=== PATIENT | female | born 1945 | race Two or more races ===

== ENCOUNTER 2016-11-05 19:35 | Inpatient (IN) | payer MEDICARE, MEDICAID ==
[~2016-11-05] VITALS: Ht 157.5 cm; Wt 75.7 kg
[~2016-11-05 19:35] MED LIST: AMLODIPINE BESY10 MG ORAL; CARVEDILOL6.25 MG ORAL; GLIPIZIDE5 MG ORAL; METFORMIN HCL500 M1 ORAL; MULTIPLE VITAM1 EAC5 PO; VITAMIN B-121000 MCG IM
[2016-11-05] MEDS ORDERED: Ertapenem 1 GM in NS 55 ML IV ONE (20:00)
[2016-11-05] MEDS ORDERED: Norco 5mg/325mg tab ORAL ONE (20:30)
[2016-11-05] MEDS ORDERED: Ertapenem (INVanz) Inj ONE (20:35)
[2016-11-05 21:00] VITALS: BP 134/64
[2016-11-05 21:06] LABS: MEAN CORPUSCULAR HEMOGLOBIN 31.4 PG (27.0-31.0); MEAN CORPUSCULAR HGB CONC 36.4 G/DL (32.0-36.0); MEAN CORPUSCULAR VOLUME 86 FL (80-99); MEAN PLATELET VOLUME 8.9 FL (6.5-10.1); PLATELET COUNT 80 K/UL (150-450); RED BLOOD COUNT 4.64 M/UL (4.20-5.40); RED CELL DISTRIBUTION WIDTH 11.9 % (11.6-14.8); WHITE BLOOD COUNT 6.8 K/UL (4.8-10.8)
[2016-11-05 21:12] LABS: APPEARANCE,URINE CLEAR; KETONES,URINE NEGATIVE (NEGATIVE); LEUKOCYTE ESTERASE ,URINE 3+ (NEGATIVE); NITRITE,URINE NEGATIVE (NEGATIVE); PH,URINE 7 (4.5-8.0); PROTEIN,URINE NEGATIVE (NEGATIVE); UROBILINOGEN,URINE NORMAL MG/DL (0.0-1.0)
[2016-11-05 21:13] LABS: PROTHROMBIN TIME 10.3 SEC (9.30-11.50)
[2016-11-05 21:14] LABS: TROPONIN I < 0.30 ng/mL (<=0.30)
[2016-11-05 21:15] LABS: ALANINE AMINOTRANSFERASE 28 U/L (3-33); ALBUMIN/GLOBULIN RATIO 1.5 (1.0-2.7); ANION GAP 15 (5-15); ASPARTATE AMINO TRANSFERASE 28 U/L (5-40); CARBON DIOXIDE 25 mEQ/L (20-30); CHLORIDE 100 mEQ/L (98-107); HEMOLYSIS 7; SODIUM 140 mEQ/L (135-145); TOTAL PROTEIN 7.5 g/dL (6.6-8.7)
[2016-11-05 21:39] LABS: BACTERIA,URINE MANY /HPF; SQUAMOUS EPITHELIAL CELL,UR FEW /LPF (NONE/OCC)
[2016-11-05 22:03] LABS: BAND NEUTROPHILS % (MANUAL) 2 % (0-8); BASOPHILS % (MANUAL) 1 % (0-2); EOSINOPHILS % (MANUAL) 8 % (0-3); LYMPHOCYTES % (MANUAL) 29 % (20-45); NEUTROPHILS % (MANUAL) 54 % (45-75); TOTAL CELLS COUNTED 100
[2016-11-05 22:04] LABS: PLATELET ESTIMATE DECREASED; PLATELET MORPHOLOGY NORMAL
[2016-11-05 22:30] VITALS: BP 134/64
--- NOTE | 2016-11-05 22:50 | Emergency Room Report ---
History of Present Illness General Chief Complaint: Female Urogenital Problems Source: Patient Present Illness HPI The patient was sent in because of resistant Escherichia coli in the urine. She 's been taking an antibiotic 3 times a day. It's not been helping her symptoms. She denies any fevers. She still has dysuria and suprapubic pain. Denies nausea and vomiting. No fevers or flank pain. The organism it is is resistant to everything except for imipenem and gentamicin. She was sent here by her doctor. The patient has a pacemaker. A year ago she underwent event monitor and was started on antiarrhythmic medication. This was stopped because of hypotension and lethargy and nothing else was replaced. She is on Coreg at this time. She does feel palpitations and some dizziness with these. She denies any chest pain. No dyspnea, rashes, extremity pain or swelling, headache. No bleeding problems. H/O Hep C and cirrhosis. H/O gastric ulcer treated, no further bleeding or pain. No NVD. Allergies: Coded Allergies: No Known Allergies (Unverified , 10/22/15) Patient History Past Medical History: see triage record Past Surgical History: pacemaker Social History: Denies: smoking Social History Narrative with family Reviewed Nursing Documentation: PMH: Agreed, PSxH: Agreed Nursing Documentation-PMH Hx Cardiac Problems: Yes Hx Hypertension: Yes Hx Pacemaker: No Hx Asthma: No Hx COPD: No Hx Diabetes: Yes Hx Cancer: No Hx Gastrointestinal Problems: No Hx Dialysis: No History Of Psychiatric Problem: No Hx Neurological Problems: No Hx Cerebrovascular Accident: No Hx Seizures: No Review of Systems All Other Systems: negative except mentioned in HPI Physical Exam Vital Signs Date Time Temp Pulse Resp B/P Pulse Ox O2 Delivery O2 Flow Rate FiO2 11/05/16 19:49 97.9 78 16 149/76 98 Room Air Sp02 EP Interpretation: reviewed, normal General Appearance: well appearing, no apparent distress, GCS 15 Head: normocephalic Eyes: bilateral eye PERRL, bilateral eye normal inspection ENT: moist mucus membranes Neck: supple Respiratory: lungs clear, normal breath sounds, other - pacemaker Cardiovascular #1: regular rate, rhythm Cardiovascular #2: 2+ radial (R) Gastrointestinal: normal inspection, normal bowel sounds, non tender, no mass, non-distended Genitourinary: no CVA tenderness Musculoskeletal: back normal, gait/station normal, normal range of motion Neurologic: alert, oriented x3, grossly normal Psychiatric: mood/affect normal Skin: normal inspection, warm/dry Medical Decision Making Diagnostic Impression: Primary Impression: UTI with resistant e coli Additional Impression: Tachyarrhythmia ER Course Patient symptomatic with resistant e coli. Needs evaluation with labs and initiation of IV antibiotics. Will also treat symptoms. As only IV antibiotics effective, will admit to hospital. Needs lab eval. Labs with pyuria. EKG with NSR and BBB. Treated with Invanz as no Imipenem. Patient had an episode of either rapid atrial fibrillation or ventricular tachycardia. She was symptomatic at that time. She felt palpitations but no chest pain. Because of this the patient is going to monitor bed. This was discussed with Dr. Lockhart. Improved with treatment. Laboratory Tests Test 11/05/16 20:25 White Blood Count 6.8 K/UL (4.8-10.8) Red Blood Count 4.64 M/UL (4.20-5.40) Hemoglobin 14.6 G/DL (12.0-16.0) Hematocrit 40.0 % (37.0-47.0) Mean Corpuscular Volume 86 FL (80-99) Mean Corpuscular Hemoglobin 31.4 PG (27.0-31.0) H Mean Corpuscular Hemoglobin Concent 36.4 G/DL (32.0-36.0) H Red Cell Distribution Width 11.9 % (11.6-14.8) Platelet Count 80 K/UL (150-450) L Mean Platelet Volume 8.9 FL (6.5-10.1) Neutrophils (%) (Auto) % (45.0-75.0) Lymphocytes (%) (Auto) % (20.0-45.0) Monocytes (%) (Auto) % (1.0-10.0) Eosinophils (%) (Auto) % (0.0-3.0) Basophils (%) (Auto) % (0.0-2.0) Differential Total Cells Counted 100 Neutrophils % (Manual) 54 % (45-75) Lymphocytes % (Manual) 29 % (20-45) Monocytes % (Manual) 6 % (1-10) Eosinophils % (Manual) 8 % (0-3) H Basophils % (Manual) 1 % (0-2) Band Neutrophils 2 % (0-8) Platelet Estimate Decreased L Platelet Morphology Normal Red Blood Cell Morphology Normal Prothrombin Time 10.3 SEC (9.30-11.50) Prothrombin Time INR 1.0 (0.9-1.1) PTT 28 SEC (23-33) Urine Color Yellow Urine Appearance Clear Urine pH 7 (4.5-8.0) Urine Specific [place] 1.005 (1.005-1.035) Urine Protein Negative (NEGATIVE) Urine Glucose (UA) Negative (NEGATIVE) Urine Ketones Negative (NEGATIVE) Urine Occult Blood Negative (NEGATIVE) Urine Nitrite Negative (NEGATIVE) Urine Bilirubin Negative (NEGATIVE) Urine Urobilinogen Normal MG/DL (0.0-1.0) Urine Leukocyte Esterase 3+ (NEGATIVE) H Urine RBC 2-4 /HPF (0 - 2) H Urine WBC 5-10 /HPF (0 - 2) H Urine Squamous Epithelial Cells Few /LPF (NONE/OCC) Urine Bacteria Many /HPF (NONE) H Sodium Level 140 mEQ/L (135-145) Potassium Level 4.0 mEQ/L (3.4-4.9) Chloride Level 100 mEQ/L (98-107) Carbon Dioxide Level 25 mEQ/L (20-30) Anion Gap 15 (5-15) Blood Urea Nitrogen 16 mg/dL (7-23) Creatinine 1.0 mg/dL (0.5-0.9) H Estimate Glomerular Filtration Rate mL/min (>60) Glucose Level 140 mg/dL (74-106) H Lactic Acid Level 1.40 mmol/L (0.66-2.22) Calcium Level 10.0 mg/dL (8.6-10.2) Total Bilirubin 0.4 mg/dL (0.0-1.2) Aspartate Amino Transferase (AST) 28 U/L (5-40) Alanine Aminotransferase (ALT) 28 U/L (3-33) Alkaline Phosphatase 59 U/L (35-104) Total Creatine Kinase 53 U/L (26-140) Troponin I < 0.30 ng/mL (<=0.30) Pro-B-Type Natriuretic Peptide 585 pg/mL (0-125) H Total Protein 7.5 g/dL (6.6-8.7) Albumin 4.5 g/dL (3.5-5.2) Globulin 3.0 g/dL Albumin/Globulin Ratio 1.5 (1.0-2.7) EKG Diagnostic Results Rate: normal Rhythm: NSR ST Segments: no acute changes - LBBB Rhythm Strip Diag. Results EP Interpretation: yes Rhythm: NSR, no PVC's, no ectopy, other - see course Chest X-Ray Diagnostic Results EP Interpretation: Yes Findings: no consolidation, no effusion, no pneumothorax, no acute cardiopulmonary disease Number of Views: 1 Last Vital Signs Date Time Temp Pulse Resp B/P Pulse Ox O2 Delivery O2 Flow Rate FiO2 11/07/16 00:24 97.8 61 18 136/76 96 Nasal Cannula 2.0 Status: improved Disposition: ADMITTED INPATIENT Condition: Serious Referrals: NON PHYSICIAN (PCP) Miguel Rodriguez M.D. November 05, 2016 22:50
[2016-11-05 23:32] VITALS: BP 145/68
[2016-11-06] VITALS: BP 148/81
[2016-11-06] MEDS ORDERED: FENOFIBRATE43 MG ORAL (00:44)
[2016-11-06] MEDS ORDERED: LOSARTAN POTAS100 MG ORAL (00:44)
[2016-11-06] MEDS ORDERED: Norco 5mg/325mg tab ORAL PRN (00:45)
[2016-11-06 04:07] VITALS: BP 141/76
[2016-11-06 07:20] LABS: MEAN CORPUSCULAR HEMOGLOBIN 29.3 PG (27.0-31.0); MEAN CORPUSCULAR VOLUME 86 FL (80-99); MEAN PLATELET VOLUME 10.9 FL (6.5-10.1); PLATELET COUNT 93 K/UL (150-450); RED BLOOD COUNT 4.61 M/UL (4.20-5.40); RED CELL DISTRIBUTION WIDTH 12.1 % (11.6-14.8); WHITE BLOOD COUNT 6.3 K/UL (4.8-10.8)
[2016-11-06 07:37] LABS: ALANINE AMINOTRANSFERASE 24 U/L (3-33); ALBUMIN/GLOBULIN RATIO 1.4 (1.0-2.7); ANION GAP 16 (5-15); ASPARTATE AMINO TRANSFERASE 24 U/L (5-40); CALCIUM 9.3 mg/dL (8.6-10.2); CARBON DIOXIDE 24 mEQ/L (20-30); CHLORIDE 101 mEQ/L (98-107); CREATININE 0.8 mg/dL (0.5-0.9); HEMOLYSIS 5; POTASSIUM 3.6 mEQ/L (3.4-4.9); SODIUM 141 mEQ/L (135-145); TOTAL PROTEIN 6.9 g/dL (6.6-8.7)
[2016-11-06 08:01] VITALS: BP 140/71
--- NOTE | 2016-11-06 08:37 | Infectious Diseases Prog Note ---
Assessment/Plan Problems: (1) Urinary tract infection Assessment & Plan: due to E coli sensitive to imipenem and gentamicin only, will start ertapenem (2) Dehydration Assessment & Plan: continue IVF for hydration Subjective Allergies: Coded Allergies: No Known Allergies (Unverified , 10/22/15) Objective Vital Signs Last 24 Hour Vital Signs Date Time Temp Pulse Resp B/P Pulse Ox O2 Delivery O2 Flow Rate FiO2 11/06/16 08:01 97.5 65 18 140/71 95 Room Air 11/06/16 04:07 97.7 67 20 141/76 95 Room Air 11/06/16 04:00 68 11/06/16 00:00 97.2 67 18 148/81 95 Room Air 11/05/16 23:40 97.9 68 16 145/68 99 Room Air 11/05/16 23:32 97.9 68 16 145/68 99 Room Air 11/05/16 21:00 97.9 67 16 134/64 99 Room Air 11/05/16 19:49 97.9 78 16 149/76 98 Room Air Height (Feet): 5 Height (Inches): 2.00 Weight (Pounds): 167 Laboratory Tests Test 11/05/16 20:25 11/06/16 05:45 White Blood Count 6.8 K/UL (4.8-10.8) 6.3 K/UL (4.8-10.8) Red Blood Count 4.64 M/UL (4.20-5.40) 4.61 M/UL (4.20-5.40) Hemoglobin 14.6 G/DL (12.0-16.0) 13.5 G/DL (12.0-16.0) Hematocrit 40.0 % (37.0-47.0) 39.6 % (37.0-47.0) Mean Corpuscular Volume 86 FL (80-99) 86 FL (80-99) Mean Corpuscular Hemoglobin 31.4 PG (27.0-31.0) H 29.3 PG (27.0-31.0) Mean Corpuscular Hemoglobin Concent 36.4 G/DL (32.0-36.0) H 34.0 G/DL (32.0-36.0) Red Cell Distribution Width 11.9 % (11.6-14.8) 12.1 % (11.6-14.8) Platelet Count 80 K/UL (150-450) L 93 K/UL (150-450) L Mean Platelet Volume 8.9 FL (6.5-10.1) 10.9 FL (6.5-10.1) H Neutrophils (%) (Auto) % (45.0-75.0) % (45.0-75.0) Lymphocytes (%) (Auto) % (20.0-45.0) % (20.0-45.0) Monocytes (%) (Auto) % (1.0-10.0) % (1.0-10.0) Eosinophils (%) (Auto) % (0.0-3.0) % (0.0-3.0) Basophils (%) (Auto) % (0.0-2.0) % (0.0-2.0) Differential Total Cells Counted 100 Neutrophils % (Manual) 54 % (45-75) Pending Lymphocytes % (Manual) 29 % (20-45) Pending Monocytes % (Manual) 6 % (1-10) Eosinophils % (Manual) 8 % (0-3) H Basophils % (Manual) 1 % (0-2) Band Neutrophils 2 % (0-8) Platelet Estimate Decreased L Pending Platelet Morphology Normal Pending Red Blood Cell Morphology Normal Prothrombin Time 10.3 SEC (9.30-11.50) Prothromb Time International Ratio 1.0 (0.9-1.1) Activated Partial Thromboplast Time 28 SEC (23-33) Urine Color Yellow Urine Appearance Clear Urine pH 7 (4.5-8.0) Urine Specific [place] 1.005 (1.005-1.035) Urine Protein Negative (NEGATIVE) Urine Glucose (UA) Negative (NEGATIVE) Urine Ketones Negative (NEGATIVE) Urine Occult Blood Negative (NEGATIVE) Urine Nitrite Negative (NEGATIVE) Urine Bilirubin Negative (NEGATIVE) Urine Urobilinogen Normal MG/DL (0.0-1.0) Urine Leukocyte Esterase 3+ (NEGATIVE) H Urine RBC 2-4 /HPF (0 - 2) H Urine WBC 5-10 /HPF (0 - 2) H Urine Squamous Epithelial Cells Few /LPF (NONE/OCC) Urine Bacteria Many /HPF (NONE) H Sodium Level 140 mEQ/L (135-145) 141 mEQ/L (135-145) Potassium Level 4.0 mEQ/L (3.4-4.9) 3.6 mEQ/L (3.4-4.9) Chloride Level 100 mEQ/L (98-107) 101 mEQ/L (98-107) Carbon Dioxide Level 25 mEQ/L (20-30) 24 mEQ/L (20-30) Anion Gap 15 (5-15) 16 (5-15) H Blood Urea Nitrogen 16 mg/dL (7-23) 14 mg/dL (7-23) Creatinine 1.0 mg/dL (0.5-0.9) H 0.8 mg/dL (0.5-0.9) Estimat Glomerular Filtration Rate mL/min (>60) mL/min (>60) Glucose Level 140 mg/dL (74-106) H 152 mg/dL (74-106) H Lactic Acid Level 1.40 mmol/L (0.66-2.22) Calcium Level 10.0 mg/dL (8.6-10.2) 9.3 mg/dL (8.6-10.2) Total Bilirubin 0.4 mg/dL (0.0-1.2) 0.4 mg/dL (0.0-1.2) Aspartate Amino Transf (AST/SGOT) 28 U/L (5-40) 24 U/L (5-40) Alanine Aminotransferase (ALT/SGPT) 28 U/L (3-33) 24 U/L (3-33) Alkaline Phosphatase 59 U/L (35-104) 52 U/L (35-104) Total Creatine Kinase 53 U/L (26-140) Troponin I < 0.30 ng/mL (<=0.30) Pro-B-Type Natriuretic Peptide 585 pg/mL (0-125) H Total Protein 7.5 g/dL (6.6-8.7) 6.9 g/dL (6.6-8.7) Albumin 4.5 g/dL (3.5-5.2) 4.1 g/dL (3.5-5.2) Globulin 3.0 g/dL 2.8 g/dL Albumin/Globulin Ratio 1.5 (1.0-2.7) 1.4 (1.0-2.7) Current Medications Medications (Trade) Dose Ordered Sig/Leonarda Route PRN Reason Start Time Stop Time Status Last Admin Dose Admin Acetaminophen (Tylenol) 650 mg Q4H PRN ORAL Mild Pain/Temp > 100.5 11/06/16 00:45 12/06/16 00:44 11/06/16 05:56 Acetaminophen/ Hydrocodone Bitart ([place] 5/325) 1 tab Q4H PRN ORAL Moderate Pain (Pain Scale 4-6) 11/06/16 00:45 11/13/16 00:44 Amlodipine Besylate (Norvasc) 10 mg DAILY ORAL 11/06/16 09:00 12/06/16 08:59 Carvedilol (Coreg) 6.25 mg BID ORAL 11/06/16 09:00 12/06/16 08:59 Fenofibrate (Tricor) 54 mg DAILY ORAL 11/06/16 09:00 12/06/16 08:59 Losartan Potassium (Cozaar) 50 mg BID ORAL 11/06/16 09:00 12/06/16 08:59 Metformin HCl (Glucophage) 500 mg TWICE A DAY ORAL 11/06/16 09:00 12/06/16 08:59 Multivitamins Therapeutic (Therapeutic Multivitamin) 1 ea DAILY ORAL 11/06/16 09:00 12/06/16 08:59 Yady Godoy M.D. November 06, 2016 08:37
[2016-11-06] MEDS: metFORMIN 500mg tab ORAL SCH ×2 (08:49→17:07)
[2016-11-06] MEDS: Multivitamin w/Minerals tab ORAL SCH (08:49)
[2016-11-06] MEDS: Losartan 50mg tab ORAL SCH ×2 (08:49→17:08)
[2016-11-06] MEDS ORDERED: Carvedilol 6.25mg Tab ORAL SCH (09:00)
[2016-11-06 09:51] LABS: BAND NEUTROPHILS % (MANUAL) 0 % (0-8); BASOPHILS % (MANUAL) 0 % (0-2); EOSINOPHILS % (MANUAL) 9 % (0-3); LYMPHOCYTES % (MANUAL) 46 % (20-45); NEUTROPHILS % (MANUAL) 35 % (45-75); PLATELET ESTIMATE DECREASED; PLATELET MORPHOLOGY NORMAL; TOTAL CELLS COUNTED 100
[2016-11-06 11:44] VITALS: BP 114/68
--- NOTE | 2016-11-06 12:47 | Diagnostic Imaging Report ---
Indication: Chest pain Technique: One view of the chest Comparison: none Findings: Heart is enlarged. Aorta is tortuous and calcified. There is a left chest bifocal pacemaker. There is mild generalized chronic appearing interstitial prominence Impression: No definite acute process Cardiomegaly
[2016-11-06 15:48] VITALS: BP 133/71
--- NOTE | 2016-11-06 15:54 | Cardiac Electrophysiology PN ---
Subjective Subjective [id number] Recurrent VT Will interrogate pacer for further eval. Likely would need cardiac cath for EF 35% and VT Objective Last 24 Hour Vital Signs Date Time Temp Pulse Resp B/P Pulse Ox O2 Delivery O2 Flow Rate FiO2 11/06/16 12:00 85 11/06/16 11:44 97.0 111 18 114/68 98 Room Air 11/06/16 08:54 65 140/71 11/06/16 08:49 140/71 11/06/16 08:49 65 140/71 11/06/16 08:01 97.5 65 18 140/71 95 Room Air 11/06/16 08:00 69 11/06/16 04:07 97.7 67 20 141/76 95 Room Air 11/06/16 04:00 68 11/06/16 00:00 97.2 67 18 148/81 95 Room Air 11/05/16 23:40 97.9 68 16 145/68 99 Room Air 11/05/16 23:32 97.9 68 16 145/68 99 Room Air 11/05/16 21:00 97.9 67 16 134/64 99 Room Air 11/05/16 19:49 97.9 78 16 149/76 98 Room Air Intake and Output 11/05/16 11/06/16 19:00 07:00 Intake Total 240 ml Balance 240 ml Intake Oral 240 ml # Voids 4 # Bowel Movements 2 Laboratory Tests Test 11/05/16 20:25 11/06/16 05:45 White Blood Count 6.8 K/UL (4.8-10.8) 6.3 K/UL (4.8-10.8) Red Blood Count 4.64 M/UL (4.20-5.40) 4.61 M/UL (4.20-5.40) Hemoglobin 14.6 G/DL (12.0-16.0) 13.5 G/DL (12.0-16.0) Hematocrit 40.0 % (37.0-47.0) 39.6 % (37.0-47.0) Mean Corpuscular Volume 86 FL (80-99) 86 FL (80-99) Mean Corpuscular Hemoglobin 31.4 PG (27.0-31.0) H 29.3 PG (27.0-31.0) Mean Corpuscular Hemoglobin Concent 36.4 G/DL (32.0-36.0) H 34.0 G/DL (32.0-36.0) Red Cell Distribution Width 11.9 % (11.6-14.8) 12.1 % (11.6-14.8) Platelet Count 80 K/UL (150-450) L 93 K/UL (150-450) L Mean Platelet Volume 8.9 FL (6.5-10.1) 10.9 FL (6.5-10.1) H Neutrophils (%) (Auto) % (45.0-75.0) % (45.0-75.0) Lymphocytes (%) (Auto) % (20.0-45.0) % (20.0-45.0) Monocytes (%) (Auto) % (1.0-10.0) % (1.0-10.0) Eosinophils (%) (Auto) % (0.0-3.0) % (0.0-3.0) Basophils (%) (Auto) % (0.0-2.0) % (0.0-2.0) Differential Total Cells Counted 100 100 Neutrophils % (Manual) 54 % (45-75) 35 % (45-75) L Lymphocytes % (Manual) 29 % (20-45) 46 % (20-45) H Monocytes % (Manual) 6 % (1-10) 10 % (1-10) Eosinophils % (Manual) 8 % (0-3) H 9 % (0-3) H Basophils % (Manual) 1 % (0-2) 0 % (0-2) Band Neutrophils 2 % (0-8) 0 % (0-8) Platelet Estimate Decreased L Decreased L Platelet Morphology Normal Normal Red Blood Cell Morphology Normal Normal Prothrombin Time 10.3 SEC (9.30-11.50) Prothromb Time International Ratio 1.0 (0.9-1.1) Activated Partial Thromboplast Time 28 SEC (23-33) Urine Color Yellow Urine Appearance Clear Urine pH 7 (4.5-8.0) Urine Specific [place] 1.005 (1.005-1.035) Urine Protein Negative (NEGATIVE) Urine Glucose (UA) Negative (NEGATIVE) Urine Ketones Negative (NEGATIVE) Urine Occult Blood Negative (NEGATIVE) Urine Nitrite Negative (NEGATIVE) Urine Bilirubin Negative (NEGATIVE) Urine Urobilinogen Normal MG/DL (0.0-1.0) Urine Leukocyte Esterase 3+ (NEGATIVE) H Urine RBC 2-4 /HPF (0 - 2) H Urine WBC 5-10 /HPF (0 - 2) H Urine Squamous Epithelial Cells Few /LPF (NONE/OCC) Urine Bacteria Many /HPF (NONE) H Sodium Level 140 mEQ/L (135-145) 141 mEQ/L (135-145) Potassium Level 4.0 mEQ/L (3.4-4.9) 3.6 mEQ/L (3.4-4.9) Chloride Level 100 mEQ/L (98-107) 101 mEQ/L (98-107) Carbon Dioxide Level 25 mEQ/L (20-30) 24 mEQ/L (20-30) Anion Gap 15 (5-15) 16 (5-15) H Blood Urea Nitrogen 16 mg/dL (7-23) 14 mg/dL (7-23) Creatinine 1.0 mg/dL (0.5-0.9) H 0.8 mg/dL (0.5-0.9) Estimat Glomerular Filtration Rate mL/min (>60) mL/min (>60) Glucose Level 140 mg/dL (74-106) H 152 mg/dL (74-106) H Lactic Acid Level 1.40 mmol/L (0.66-2.22) Calcium Level 10.0 mg/dL (8.6-10.2) 9.3 mg/dL (8.6-10.2) Total Bilirubin 0.4 mg/dL (0.0-1.2) 0.4 mg/dL (0.0-1.2) Aspartate Amino Transf (AST/SGOT) 28 U/L (5-40) 24 U/L (5-40) Alanine Aminotransferase (ALT/SGPT) 28 U/L (3-33) 24 U/L (3-33) Alkaline Phosphatase 59 U/L (35-104) 52 U/L (35-104) Total Creatine Kinase 53 U/L (26-140) Troponin I < 0.30 ng/mL (<=0.30) Pro-B-Type Natriuretic Peptide 585 pg/mL (0-125) H Total Protein 7.5 g/dL (6.6-8.7) 6.9 g/dL (6.6-8.7) Albumin 4.5 g/dL (3.5-5.2) 4.1 g/dL (3.5-5.2) Globulin 3.0 g/dL 2.8 g/dL Albumin/Globulin Ratio 1.5 (1.0-2.7) 1.4 (1.0-2.7) Microbiology Date/Time Source Procedure Growth Status 11/05/16 20:25 Urine,Clean Catch Urine Culture - Preliminary Resulted AURELIA BOYLE November 06, 2016 15:54
[2016-11-06] MEDS: Carvedilol 6.25mg Tab ORAL SCH (17:07)
--- NOTE | 2016-11-06 18:29 | Diagnostic Imaging Report ---
APPROVED REPORT CPT Code: 75416 Present Symptoms Comments: Pain BILATERAL: Imaging reveals a patent deep venous system bilaterally. There is no evidence of thrombus within the femoral, popliteal or tibial segments. The greater saphenous veins are also within normal limits. Doppler indicates normal spontaneous flow within these segments.
--- NOTE | 2016-11-06 18:57 | Cardiology Report ---
APPROVED REPORT EKG Measurement Heart [id number] Normal sinus rhythm Possible Left atrial enlargement Left bundle branch block Abnormal ECG
--- NOTE | 2016-11-06 19:08 | Cardiology Report ---
APPROVED REPORT EXAM: Two-dimensional and M-mode echocardiogram with Doppler and color Doppler. INDICATION Ventricular function M-Mode DIMENSIONS IVSd0.9 (0.7-1.1cm)Left Atrium (MM)3.6 (1.6-4.0cm) LVDd4.2 (3.5-5.6cm)Aortic Root2.7 (2.0-3.7cm) PWd0.8 (0.7-1.1cm)Aortic Cusp Exc.1.7 (1.5-2.0cm) LVDs3.6 (2.5-4.0cm) PWs1.1 cm Technically difficult study due to poor acoustic windows. Normal left ventricular chamber size. Global left ventricular wall hypokinesia. Ischemic cardiomyopathy cannot be excluded. Left ventricular ejection fraction estimated to be 35-40%. Mild left ventricular hypertrophy. No evidence of pericardial fat or effusion. Right cardiac chamber sizes are within normal limits. Mild left atrial enlargement by 2D. Focal aortic valve sclerosis with adequate cusp excursion Thickened mitral valve leaflets with normal excursion. Mild mitral annulus and aortic root calcification. Pulmonic valve not well visualized. Normal tricuspid valve structure. IVC is normal in size with physiological collapse. Probable pacemaker wire present in the right side chambers. A color flow and spectral Doppler study was performed and revealed: Trace aortic regurgitation. Moderate mitral regurgitation. Left ventricular diastolic dysfunction grade 1. Moderate tricuspid regurgitation. Tricuspid systolic velocities suggests peak right ventricular systolic pressure of 42 mmHg Consistent with mild pulmonary hypertension.
[2016-11-06] MEDS: Ertapenem 1 GM in NS 55 ML IVPB SCH (20:12)
[2016-11-06 20:14] VITALS: BP 101/54
--- NOTE | 2016-11-06 20:17 | Consultation ---
DATE OF CONSULTATION: 11/06/2016 INFECTIOUS DISEASE CONSULTATION CONSULTING PHYSICIAN: Yady Godoy M.D. REFERRING PHYSICIAN: Mio Lockhart M.D. REASON FOR CONSULTATION: Urinary tract infection with multi-drug resistant E. coli, sensitive only to carbapenem. HISTORY OF PRESENT ILLNESS: The patient is a 71-year-old female with past medical history of hypertension, coronary artery disease, and diabetes who was sent by her primary care physician for urinary tract infection treatment since she failed outpatient therapy. The patient was taking antibiotics for three times a day by her primary care provider with no improvement in her symptoms. Her urine culture grew multi-drug resistant E. coli sensitive only to imipenem and gentamicin, so she was sent to the emergency room for management and I was consulted by the primary provider for antibiotic choice. REVIEW OF SYSTEMS: Twelve points of systems reviewed and were all negative. PAST MEDICAL HISTORY: Significant for coronary artery disease, hypertension, and diabetes. PAST SURGICAL HISTORY: Negative. SOCIAL HISTORY: The patient lives with family. No recent drugs, tobacco, or alcohol. FAMILY HISTORY: Noncontributory. No recurrent malignancy or immunocompromised condition. ALLERGIES: She has no known drug allergy. MEDICATIONS: The patient was given ertapenem in the emergency room. For the list of her medications, please refer to MAR. LABORATORY DATA: Labs showed white count 6.6 and creatinine of 0.8. Microbiology, urine culture is pending. PHYSICAL EXAMINATION: VITAL SIGNS: Temperature 97, pulse 111, respirations 18, blood pressure 114/68, and saturation 98% on room air. GENERAL: Elderly female lying in bed, alert, not in distress. HEENT: Normocephalic and atraumatic. Dry oral mucosa. NECK: Supple. No lymphadenopathy. CARDIOVASCULAR: Regular rate and rhythm. No murmur. LUNGS: Clear bilaterally. No wheezing. No rhonchi. ABDOMEN: Soft, nontender, and nondistended. Positive bowel sounds. No hepatosplenomegaly. EXTREMITIES: No edema or cyanosis. ASSESSMENT AND RECOMMENDATION: 1. Urinary tract infection due to multidrug resistant Escherichia coli. We will start the patient on ertapenem empirically pending her culture results from the emergency room. 2. Dehydration. Continue IV fluid for hydration. Monitor electrolytes. 3. Diabetes. Recommend tight glycemic control to keep blood sugar between 80 to 120. Yady Godoy M.D. DR: ESTHER JOB#: [id number] CC:
--- NOTE | 2016-11-06 22:32 | History and Physical Report ---
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 The patient had dysuria and the urine culture showed E. coli that is resistant to all p.o. antibiotics. The patient has also had tachyarrhythmia and was admitted for those reasons. The patient also complains of pain allover. Denies chest pain. Denies shortness of breath. Did have some palpitation. Feels more weak than usual. PAST MEDICAL HISTORY: Hypertension, vitamin B12 deficiency, NIDDM, and arrhythmia. PAST SURGICAL HISTORY: Tubal ligation, hysterectomy, eye surgery, cholecystectomy, and pacemaker. FAMILY HISTORY: The patient has a history of diabetes and hypertension. SOCIAL HISTORY: The patient denies history of smoking. No history of alcohol or drug abuse. ALLERGIES: No known drug allergies. MEDICATIONS: As mentioned metformin, multivitamin, vitamin B12, Colace, and amlodipine. REVIEW OF SYSTEMS: HEENT: Denies headache. Respiratory: Denies shortness of breath. Denies cough. Cardiovascular: Denies chest pain. Denies orthopnea. Does have palpitation. Extremities: Reports pain allover. Gastrointestinal: Denies nausea, vomiting, or diarrhea. Denies abdominal pain. Genitourinary: Does have dysuria and urinary frequency. QUARRYING MANAGER: Denies change in vision or speech pattern. Feels weaker than usual. Denies headache. PHYSICAL EXAMINATION: VITAL SIGNS: Temperature is 97.7, pulse is 67, and blood pressure 141/76. HEENT: PERRLA. NECK: Supple. No lymphadenopathy. CHEST: Clear to auscultation. GASTROINTESTINAL: Suprapubic tenderness. No rebound. Abdomen is distended, however, is soft. Positive bowel sounds. No organomegaly. EXTREMITIES: 1+ edema. Reflexes are equal on both sides. Able to move all extremities. NEUROLOGIC: Cranial nerves II through XII are intact. She has generalized weakness. She is able to move all four extremities. No decreased range of motion LABORATORY AND DIAGNOSTIC DATA: Laboratory [place], WBC of 6.8, hemoglobin 14.6, and platelets of 80,000. Sodium 140, potassium 4, BUN of 16, creatinine of 1, and glucose of 140. BNP of 585. ASSESSMENT AND PLAN: 1. Symptomatic urinary tract infection, resistant to all oral antibiotics. 2. Tachyarrhythmia. 3. I have asked Dr. Desai as well as Dr. Godoy as well as Dr. Hendrix to see the patient for dehydration and the above mentioned diagnoses and treatment. Mio Lockhart M.D. DR: HALLIE JOB#: [id number] CC:
[2016-11-07 00:24] VITALS: BP 136/76
--- NOTE | 2016-11-07 00:32 | Consultation ---
DATE OF CONSULTATION: 11/06/2016 CARDIAC ELECTROPHYSIOLOGY CONSULTATION CONSULTING PHYSICIAN: Bo Desai M.D. REFERRING PHYSICIAN: Mio Lockhart M.D. REASON FOR CONSULTATION: Ventricular tachycardia. HISTORY OF PRESENT ILLNESS: The patient is a 71-year-old lady with history of hypertension and history of sick sinus syndrome, who underwent a [employer] pacemaker implantation in July 2014. The patient also has history of idiopathic thrombocytopenic purpura and diabetes. The patient was sent in for resistant urinary tract infection with E. coli. The patient was on antibiotics three times a day, but symptoms were not relieving. The patient was also complaining of lightheaded and dizziness. While she was on telemetry, the patient was found to have recurrent episodes of wide complex tachycardia suggestive of ventricular tachycardia. Currently, the patient is in sinus rhythm on telemetry tracings. Cardiac electrophysiology consultation was obtained for further evaluation and management. PAST MEDICAL HISTORY: 1. Hypertension. 2. Diabetes. 3. History of [employer] pacemaker [place] [address] Lau. FAMILY HISTORY: Noncontributory. SOCIAL HISTORY: She lives at home. Does not smoke or drink alcohol. REVIEW OF SYSTEMS: Review of systems was performed and was negative other that what was mentioned in the history of present illness. PHYSICAL EXAMINATION: VITAL SIGNS: Blood pressure is 114/68, pulse is 80 to 120 depending on the underlying rhythm, respirations 18, and temperature 97 degrees. HEAD AND NECK: Shows no JVD. LUNGS: Clear. CARDIOVASCULAR: Shows regular S1 and S2 with no gallop. Pacemaker in left subclavian. ABDOMEN: Soft. EXTREMITIES: No pitting edema. LABORATORY DATA: Her labs show white count of 6.2, hemoglobin 13.5, hematocrit of 39.6, and platelet count of 93,000. Sodium 141, potassium 3.6, BUN of 14, creatinine 0.8, and glucose of 152. Troponin negative. BNP is 585. A 12-lead EKG showed sinus rhythm with complete left bundle-branch block and secondary repolarization abnormality. Her telemetry strip shows frequent runs of wide complex tachycardia, likely ventricular tachycardia. Her 2D echocardiogram showed ejection fraction 35% to 40%. ASSESSMENT AND PLAN: 1. Recurrent runs of ventricular tachycardia in this patient with cardiomyopathy, ejection fraction of 35% to 40%. I would interrogate the pacemaker and if they can confirm atrioventricular dissociation then I would confirm are truly ventricular tachycardia. The patient then would need cardiac catheterization for further evaluation of her coronaries especially in view of her cardiomyopathy. In the meantime, I will maximize her heart failure therapy with Coreg and increase the Coreg to 12.5 mg b.i.d. and continue Cozaar 50 mg b.i.d. and add Lasix and Aldactone to her medical regimen. 2. Hypertension. Again, maximize heart failure therapy of Coreg, Cozaar, Aldactone, and Lasix. I will discontinue amlodipine. 3. Status post [employer] pacemaker. Again, the pacemaker will be interrogated for further evaluation. 4. Resistant urinary tract infection. The patient is on ertapenem per Dr. Godoy. Thank you very much, Dr. Lockhart, for allowing me to participate in the care of this patient. Please do not hesitate to contact for any questions regarding my evaluation. Bo Desai M.D. DR: CAPRI JOB#: [id number] CC:
[2016-11-07 04:10] VITALS: BP 121/79
[2016-11-07 08:00] VITALS: BP 109/61
--- NOTE | 2016-11-07 09:16 | General Progress Note ---
Assessment/Plan Problem List: (1) Tachyarrhythmia ICD Codes: R00.0 - Tachycardia, unspecified SNOMED: 7993555 (2) Urinary tract infection ICD Codes: N39.0 - Urinary tract infection, site not specified SNOMED: 43868696 (3) Dehydration ICD Codes: E86.0 - Dehydration SNOMED: 55333778 (4) Abdominal pain ICD Codes: R10.9 - Unspecified abdominal pain SNOMED: 23680034 Status: progressing Assessment/Plan afebrile dysurea vitals stable no wheezing no palpitation Subjective ROS Limited/Unobtainable: Yes Constitutional: Reports: no symptoms Allergies: Coded Allergies: No Known Allergies (Unverified , 10/22/15) Objective Last 24 Hour Vital Signs Date Time Temp Pulse Resp B/P Pulse Ox O2 Delivery O2 Flow Rate FiO2 11/07/16 04:10 98.2 66 19 121/79 95 Nasal Cannula 2.0 11/07/16 04:00 63 11/07/16 00:24 97.8 61 18 136/76 96 Nasal Cannula 2.0 11/07/16 00:00 65 11/06/16 20:14 97.5 69 19 101/54 95 Room Air 11/06/16 20:00 69 11/06/16 17:08 133/71 11/06/16 17:07 66 133/71 11/06/16 16:00 66 11/06/16 15:48 97.9 117 18 133/71 97 Room Air 11/06/16 12:00 85 11/06/16 11:44 97.0 111 18 114/68 98 Room Air Intake and Output 11/06/16 11/07/16 19:00 07:00 Intake Total 360 ml Balance 360 ml Intake Oral 360 ml # Voids 3 1 Height (Feet): 5 Height (Inches): 2.00 Weight (Pounds): 167 Neck: supple Cardiovascular: normal rate Respiratory/Chest: lungs clear Abdomen: non tender Mio Lockhart MD November 07, 2016 09:16
[2016-11-07] MEDS: Multivitamin w/Minerals tab ORAL SCH (09:28)
[2016-11-07] MEDS: Spironolactone 25mg tab ORAL SCH (09:28)
[2016-11-07] MEDS: metFORMIN 500mg tab ORAL SCH ×2 (09:28→18:09)
[2016-11-07] MEDS: Losartan 50mg tab ORAL SCH ×2 (09:28→18:08)
[2016-11-07] MEDS: Furosemide 40mg tab ORAL SCH (09:29)
[2016-11-07] MEDS: Carvedilol 6.25mg Tab ORAL SCH ×2 (09:32→18:09)
[2016-11-07 10:10] LABS: MEAN CORPUSCULAR HEMOGLOBIN 29.2 PG (27.0-31.0); MEAN CORPUSCULAR HGB CONC 33.8 G/DL (32.0-36.0); MEAN CORPUSCULAR VOLUME 86 FL (80-99); MEAN PLATELET VOLUME 9.6 FL (6.5-10.1); PLATELET COUNT 89 K/UL (150-450); RED BLOOD COUNT 4.51 M/UL (4.20-5.40); RED CELL DISTRIBUTION WIDTH 11.9 % (11.6-14.8); WHITE BLOOD COUNT 6.3 K/UL (4.8-10.8)
[2016-11-07 10:25] LABS: ALANINE AMINOTRANSFERASE 23 U/L (3-33); ALBUMIN/GLOBULIN RATIO 1.3 (1.0-2.7); ANION GAP 15 (5-15); ASPARTATE AMINO TRANSFERASE 26 U/L (5-40); CALCIUM 9.3 mg/dL (8.6-10.2); CARBON DIOXIDE 23 mEQ/L (20-30); CHLORIDE 99 mEQ/L (98-107); CREATININE 0.8 mg/dL (0.5-0.9); HEMOLYSIS 8; POTASSIUM 3.7 mEQ/L (3.4-4.9); SODIUM 137 mEQ/L (135-145); TOTAL PROTEIN 6.5 g/dL (6.6-8.7)
[2016-11-07 10:46] LABS: BAND NEUTROPHILS % (MANUAL) 0 % (0-8); BASOPHILS % (MANUAL) 1 % (0-2); EOSINOPHILS % (MANUAL) 2 % (0-3); LYMPHOCYTES % (MANUAL) 34 % (20-45); NEUTROPHILS % (MANUAL) 54 % (45-75); PLATELET ESTIMATE DECREASED; PLATELET MORPHOLOGY NORMAL; TOTAL CELLS COUNTED 100
[2016-11-07 12:00] VITALS: BP 106/63
--- NOTE | 2016-11-07 13:56 | Infectious Diseases Prog Note ---
Assessment/Plan Problems: (1) Acute pyelonephritis Assessment & Plan: due to MDR E coli sensitive to imipenem and gentamicin only , will continue ertapenem for two weeks (2) Dehydration Assessment & Plan: continue IVF for hydration Subjective Constitutional: Reports: no symptoms HEENT: Reports: no symptoms Respiratory: Reports: no symptoms Cardiovascular: Reports: no symptoms Gastrointestinal/Abdominal: Reports: no symptoms Genitourinary: Reports: dysuria, frequency Neurologic: Reports: no symptoms Psychiatric: Reports: no symptoms Musculoskeletal: Reports: pain Allergies: Coded Allergies: No Known Allergies (Unverified , 10/22/15) Objective Vital Signs Last 24 Hour Vital Signs Date Time Temp Pulse Resp B/P Pulse Ox O2 Delivery O2 Flow Rate FiO2 11/07/16 12:00 63 11/07/16 12:00 97.4 64 19 106/63 Nasal Cannula 2.0 98 11/07/16 09:32 93 109/61 11/07/16 09:28 109/61 11/07/16 08:00 97.3 64 18 109/61 Nasal Cannula 2.0 97 11/07/16 08:00 69 11/07/16 04:10 98.2 66 19 121/79 95 Nasal Cannula 2.0 11/07/16 04:00 63 11/07/16 00:24 97.8 61 18 136/76 96 Nasal Cannula 2.0 11/07/16 00:00 65 11/06/16 20:14 97.5 69 19 101/54 95 Room Air 11/06/16 20:00 69 11/06/16 17:08 133/71 11/06/16 17:07 66 133/71 11/06/16 16:00 66 11/06/16 15:48 97.9 117 18 133/71 97 Room Air Height (Feet): 5 Height (Inches): 2.00 Weight (Pounds): 167 General Appearance: WD/WN, no acute distress HEENT: normocephalic, atraumatic, anicteric, mucous membranes moist Respiratory/Chest: chest wall non-tender, lungs clear, normal breath sounds, no respiratory distress, no accessory muscle use Cardiovascular: normal peripheral pulses, normal rate, regular rhythm, no gallop/murmur Abdomen: normal bowel sounds, soft, non tender, no organomegaly, non distended , no mass Extremities: no cyanosis, no clubbing Skin: no rash, no lesions Microbiology Date/Time Source Procedure Growth Status 11/05/16 21:00 Blood Blood Culture - Preliminary NO GROWTH AFTER 24 HOURS Resulted 11/05/16 20:40 Blood Blood Culture - Preliminary NO GROWTH AFTER 24 HOURS Resulted 11/05/16 20:25 Urine,Clean Catch Urine Culture - Preliminary Gram Negative Efe Resulted Laboratory Tests Test 11/07/16 09:48 White Blood Count 6.3 K/UL (4.8-10.8) Red Blood Count 4.51 M/UL (4.20-5.40) Hemoglobin 13.2 G/DL (12.0-16.0) Hematocrit 38.9 % (37.0-47.0) Mean Corpuscular Volume 86 FL (80-99) Mean Corpuscular Hemoglobin 29.2 PG (27.0-31.0) Mean Corpuscular Hemoglobin Concent 33.8 G/DL (32.0-36.0) Red Cell Distribution Width 11.9 % (11.6-14.8) Platelet Count 89 K/UL (150-450) L Mean Platelet Volume 9.6 FL (6.5-10.1) Neutrophils (%) (Auto) % (45.0-75.0) Lymphocytes (%) (Auto) % (20.0-45.0) Monocytes (%) (Auto) % (1.0-10.0) Eosinophils (%) (Auto) % (0.0-3.0) Basophils (%) (Auto) % (0.0-2.0) Differential Total Cells Counted 100 Neutrophils % (Manual) 54 % (45-75) Lymphocytes % (Manual) 34 % (20-45) Monocytes % (Manual) 9 % (1-10) Eosinophils % (Manual) 2 % (0-3) Basophils % (Manual) 1 % (0-2) Band Neutrophils 0 % (0-8) Platelet Estimate Decreased L Platelet Morphology Normal Red Blood Cell Morphology Normal Sodium Level 137 mEQ/L (135-145) Potassium Level 3.7 mEQ/L (3.4-4.9) Chloride Level 99 mEQ/L (98-107) Carbon Dioxide Level 23 mEQ/L (20-30) Anion Gap 15 (5-15) Blood Urea Nitrogen 14 mg/dL (7-23) Creatinine 0.8 mg/dL (0.5-0.9) Estimat Glomerular Filtration Rate mL/min (>60) Glucose Level 281 mg/dL (74-106) #H Calcium Level 9.3 mg/dL (8.6-10.2) Total Bilirubin 0.4 mg/dL (0.0-1.2) Aspartate Amino Transf (AST/SGOT) 26 U/L (5-40) Alanine Aminotransferase (ALT/SGPT) 23 U/L (3-33) Alkaline Phosphatase 48 U/L (35-104) Total Protein 6.5 g/dL (6.6-8.7) L Albumin 3.7 g/dL (3.5-5.2) Globulin 2.8 g/dL Albumin/Globulin Ratio 1.3 (1.0-2.7) Current Medications Medications (Trade) Dose Ordered Sig/Leonarda Route PRN Reason Start Time Stop Time Status Last Admin Dose Admin Acetaminophen (Tylenol) 650 mg Q4H PRN ORAL Mild Pain/Temp > 100.5 11/06/16 00:45 12/06/16 00:44 11/06/16 05:56 Acetaminophen/ Hydrocodone Bitart ([place] 5/325) 1 tab Q4H PRN ORAL Moderate Pain (Pain Scale 4-6) 11/06/16 00:45 11/13/16 00:44 Carvedilol (Coreg) 12.5 mg BID ORAL 11/06/16 18:00 12/06/16 17:59 11/07/16 09:32 Ertapenem/Sodium Chloride (INVanz/Sodium Chloride) 55 ml @ 110 mls/hr Q24H IVPB 11/06/16 20:00 11/11/16 19:59 11/06/16 20:12 Fenofibrate 54 mg 54 mg DAILY ORAL 11/06/16 09:00 12/06/16 08:59 11/07/16 09:28 Furosemide (Lasix) 40 mg DAILY ORAL 11/07/16 09:00 12/07/16 08:59 11/07/16 09:29 Losartan Potassium (Cozaar) 50 mg BID ORAL 11/06/16 09:00 12/06/16 08:59 11/07/16 09:28 Metformin HCl (Glucophage) 500 mg TWICE A DAY ORAL 11/06/16 09:00 12/06/16 08:59 11/07/16 09:28 Multivitamins Therapeutic (Therapeutic Multivitamin) 1 ea DAILY ORAL 11/06/16 09:00 12/06/16 08:59 11/07/16 09:28 Spironolactone (Aldactone) 25 mg DAILY ORAL 11/07/16 09:00 12/07/16 08:59 11/07/16 09:28 Yady Godoy M.D. November 07, 2016 13:56
[2016-11-07] MEDS ORDERED: NS 275ml ONE (14:07)
[2016-11-07] MEDS ORDERED: Tubing IV Secondary IV ONE (14:07)
[2016-11-07 16:00] VITALS: BP 117/64
[2016-11-07] MEDS: Ertapenem 1 GM in NS 55 ML IVPB SCH (19:41)
[2016-11-07 20:00] VITALS: BP 131/67
--- NOTE | 2016-11-07 23:16 | Consultation ---
DATE OF CONSULTATION: 11/06/2016 HEMATOLOGY/ONCOLOGY CONSULT CONSULTING PHYSICIAN: Dillon Spann MD REFERRING PHYSICIAN: Mio Lockhart M.D. REASON FOR CONSULTATION: Thrombocytopenia. CURRENT COMPLAINT AND HISTORY OF PRESENT ILLNESS: Dear Dr. Lockhart, Today, I had an opportunity to see one of your patients, Elizabeth Paulino, who as your well aware is a 71-year-old lady with history of chronic ITP, diabetes, hypertension, history of [employer] pacemaker placement, and cardiac arrhythmia. During evaluation, it was found the patient developed urinary tract infection with E. coli. It was found the patient's platelet count is still low. My service was called to handle the issue of thrombocytopenia. Multiple consultants were called. PAST MEDICAL HISTORY: 1. Chronic ITP. 2. Status post treatment with Rituxan. 3. Status post treatment with steroid. 4. Hypertension . 5. Diabetes mellitus. 6. History of cardiac arrhythmia. 7. Status post [employer] pacemaker placement in 2015. MEDICATIONS: List reviewed. SOCIAL HISTORY: The patient lives at home. No history of smoking. No history of alcohol abuse. REVIEW OF SYSTEMS: General Description: The patient not in any significant distress, but looks chronically ill. Respiratory: Mild shortness of breath with exertion. Gastrointestinal: The patient claimed constipation. Neuromuscular: The patient claimed muscle aches. PHYSICAL EXAMINATION: VITAL SIGNS: T-max 97 degrees, respiratory rate 20, heart rate 80, and blood pressure 125/70. HEENT: Head, normocephalic and atraumatic. ABDOMEN: Soft. Benign. No organomegaly present. Bowel sounds present. EXTREMITIES: No cyanosis, clubbing, or edema. LABORATORY DATA: WBC 6.2, hemoglobin 13.5, hematocrit 39.6, and platelets 93,000. BNP 585. Creatinine 0.8. IMPRESSION: 1. Chronic idiopathic thrombocytopenic purpura. 2. Status post treatment with steroids. 3. Status post treatment with Rituxan. 4. Recurrent runs of ventricular tachycardia. 5. History of cardiomyopathy. 6. Decreased ejection fraction. 7. Status post [employer]'s pacemaker placement in 2014. 8. Coronary artery disease. 9. Hypertension. 10. Diabetes mellitus. 11. Recent urinary tract infection. 12. Failure to thrive. RECOMMENDATION: 1. Watch count. 2. Watch coagulopathy. 3. PRBC transfusion on a p.r.n. basis. 4. Antibiotic IV. 5. Cardiology followup. 6. Diabetes management. 7. Skin care. 8. Nutrition. 9. Check venous Doppler of bilateral lower extremities to rule out DVT. 10. ID followup. 11. Cardiology followup. 12. Close followup. 13. Continue current treatment. Dillon Spann MD DR: DWIGHT JOB#: [id number] CC:
[2016-11-08 00:32] VITALS: BP 120/57
--- NOTE | 2016-11-08 00:46 | Progress Note ---
DATE: 11/07/2016 HEMATOLOGY ONCOLOGY PROGRESS NOTE SUBJECTIVE: The patient in the room. Calm. Afebrile. No distress. Comfortable. MEDICATIONS: 1. Aldactone. 2. Lasix. 3. Coreg. 4. Cozaar. 5. Glucophage. 6. Tylenol. 7. Decker. PHYSICAL EXAMINATION: VITAL SIGNS: T-max is 97. Respiratory rate is 20. Pulse is 80. Blood pressure 130/80. HEENT: Head, normocephalic and atraumatic. NECK: Supple. No thyroid enlargement. No lymphadenopathy. LUNGS: Decreased breath sounds bilaterally with few rhonchi in the base. HEART: S1 and S2 regular. ABDOMEN: Benign. No organomegaly present. Bowel sounds present. EXTREMITIES: No cyanosis, clubbing, or edema. LABORATORY DATA: WBC 6.6, hemoglobin 13.2, hematocrit 38.9, and platelets 89,000. Coagulopathy INR 1.0. Chemistry shows creatinine 0.8. IMPRESSION: 1. Chronic idiopathic thrombocytopenic purpura. 2. Status post treatment with steroid by mouth. 3. Status post treatment with rituximab. 4. History of cardiac arrhythmia. 5. Status post [employer] pacemaker placement in 2014. 6. Diabetes mellitus. 7. Hypertension. 8. Resistant urinary tract infection. 9. Failure to thrive. RECOMMENDATION: 1. Watch count. 2. Watch coagulopathy. 3. Platelet transfusion as needed basis. 4. Antibiotic intravenous. 5. Cardiology followup. 6. ID followup. 7. Skin care. 8. Nutrition. 9. Continue current treatment. Dillon Spann MD DR: AMARIS JOB#: [id number] CC:
[2016-11-08 04:16] VITALS: BP 109/54
[2016-11-08 08:00] VITALS: BP 109/60
[2016-11-08 08:51] LABS: MEAN CORPUSCULAR HEMOGLOBIN 29.8 PG (27.0-31.0); MEAN CORPUSCULAR HGB CONC 34.7 G/DL (32.0-36.0); MEAN CORPUSCULAR VOLUME 86 FL (80-99); MEAN PLATELET VOLUME 9.5 FL (6.5-10.1); PLATELET COUNT 87 K/UL (150-450); RED BLOOD COUNT 4.69 M/UL (4.20-5.40); RED CELL DISTRIBUTION WIDTH 11.6 % (11.6-14.8); WHITE BLOOD COUNT 6.6 K/UL (4.8-10.8)
[2016-11-08] MEDS: Spironolactone 25mg tab ORAL SCH (08:51)
[2016-11-08] MEDS: metFORMIN 500mg tab ORAL SCH ×2 (08:51→18:37)
[2016-11-08] MEDS: Furosemide 40mg tab ORAL SCH (08:53)
[2016-11-08] MEDS: Multivitamin w/Minerals tab ORAL SCH (08:53)
[2016-11-08] MEDS: Carvedilol 6.25mg Tab ORAL SCH ×2 (08:54→18:37)
[2016-11-08] MEDS: Losartan 50mg tab ORAL SCH ×2 (08:55→18:00)
[2016-11-08 09:48] LABS: BAND NEUTROPHILS % (MANUAL) 0 % (0-8); BASOPHILS % (MANUAL) 0 % (0-2); EOSINOPHILS % (MANUAL) 7 % (0-3); LYMPHOCYTES % (MANUAL) 35 % (20-45); NEUTROPHILS % (MANUAL) 45 % (45-75); PLATELET ESTIMATE DECREASED; TOTAL CELLS COUNTED 100
[2016-11-08 12:00] VITALS: BP 97/54
--- NOTE | 2016-11-08 12:39 | Cardiac Electrophysiology PN ---
Assessment/Plan Assessment/Plan 1. Recurrent wide complex tachycardia in this patient with cardiomyopathy, ejection fraction of 35% to 40%. Interrogated the [employer] pacemaker that showed some of these episodes were PMT. PVARP was increased. 2. CHF Better on Coreg 12.5 mg b.i.d.,Cozaar 50 mg b.i.d., Lasix and Aldactone 3. Hypertension. Maximize heart failure therapy of Coreg, Cozaar, Aldactone, and Lasix. 4. Status post [employer] pacemaker. Pacemaker was interrogated. 5. LBBB 6. Resistant urinary tract infection. On ertapenem per Dr. Godoy. VALENTINA RN Subjective Subjective Feeling better. No chest pain or SOB. Pacer was reprogrammed as was having PMTs.Had runs of WCT again. Objective Last 24 Hour Vital Signs Date Time Temp Pulse Resp B/P Pulse Ox O2 Delivery O2 Flow Rate FiO2 11/08/16 12:00 97.4 65 18 97/54 Nasal Cannula 11/08/16 08:55 109/60 11/08/16 08:54 72 109/60 11/08/16 08:00 97.0 72 19 109/60 98 Room Air 11/08/16 08:00 73 11/08/16 04:16 98.1 64 20 109/54 98 Room Air 11/08/16 04:00 66 11/08/16 00:32 98.0 67 20 120/57 98 Room Air 11/08/16 00:00 67 11/07/16 20:00 97.9 70 18 131/67 97 Nasal Cannula 2.0 11/07/16 20:00 73 11/07/16 18:09 65 117/64 11/07/16 18:08 117/64 11/07/16 16:00 97.4 58 18 117/64 Nasal Cannula 2.0 97 11/07/16 16:00 65 Intake and Output 11/07/16 11/08/16 19:00 07:00 Intake Total 55 ml Output Total 1 ml Balance 54 ml IV Total 55 ml Output Urine Total 1 ml # Voids 1 Laboratory Tests Test 11/08/16 07:39 White Blood Count 6.6 K/UL (4.8-10.8) Red Blood Count 4.69 M/UL (4.20-5.40) Hemoglobin 14.0 G/DL (12.0-16.0) Hematocrit 40.3 % (37.0-47.0) Mean Corpuscular Volume 86 FL (80-99) Mean Corpuscular Hemoglobin 29.8 PG (27.0-31.0) Mean Corpuscular Hemoglobin Concent 34.7 G/DL (32.0-36.0) Red Cell Distribution Width 11.6 % (11.6-14.8) Platelet Count 87 K/UL (150-450) L Mean Platelet Volume 9.5 FL (6.5-10.1) Neutrophils (%) (Auto) % (45.0-75.0) Lymphocytes (%) (Auto) % (20.0-45.0) Monocytes (%) (Auto) % (1.0-10.0) Eosinophils (%) (Auto) % (0.0-3.0) Basophils (%) (Auto) % (0.0-2.0) Differential Total Cells Counted 100 Neutrophils % (Manual) 45 % (45-75) Lymphocytes % (Manual) 35 % (20-45) Monocytes % (Manual) 13 % (1-10) H Eosinophils % (Manual) 7 % (0-3) H Basophils % (Manual) 0 % (0-2) Band Neutrophils 0 % (0-8) Platelet Estimate Decreased L Platelet Morphology Giant Platelets Rare Red Blood Cell Morphology Normal Microbiology Date/Time Source Procedure Growth Status 11/05/16 21:00 Blood Blood Culture - Preliminary NO GROWTH AFTER 48 HOURS Resulted 11/05/16 20:40 Blood Blood Culture - Preliminary NO GROWTH AFTER 48 HOURS Resulted 11/05/16 20:25 Urine,Clean Catch Urine Culture - Preliminary Escherichia Coli - Esbl Resulted Objective HEAD AND NECK: Shows no JVD. LUNGS: Clear. CARDIOVASCULAR: Regular S1 and S2 with no gallop. Pacemaker in left subclavian. ABDOMEN: Soft. EXTREMITIES: No pitting edema. AURELIA BOYLE November 08, 2016 12:39
--- NOTE | 2016-11-08 13:34 | General Progress Note ---
Assessment/Plan Problem List: (1) Tachyarrhythmia ICD Codes: R00.0 - Tachycardia, unspecified SNOMED: 2104886 (2) Urinary tract infection ICD Codes: N39.0 - Urinary tract infection, site not specified SNOMED: 96486124 (3) Dehydration ICD Codes: E86.0 - Dehydration SNOMED: 14593786 (4) Abdominal pain ICD Codes: R10.9 - Unspecified abdominal pain SNOMED: 97739607 Status: progressing Assessment/Plan dysurea resolved afebrile uti iv abx per id clinically improving no palpitation Subjective ROS Limited/Unobtainable: Yes Constitutional: Reports: no symptoms Allergies: Coded Allergies: No Known Allergies (Unverified , 10/22/15) Objective Last 24 Hour Vital Signs Date Time Temp Pulse Resp B/P Pulse Ox O2 Delivery O2 Flow Rate FiO2 11/08/16 12:00 97.4 65 18 97/54 Nasal Cannula 11/08/16 08:55 109/60 11/08/16 08:54 72 109/60 11/08/16 08:00 97.0 72 19 109/60 98 Room Air 11/08/16 08:00 73 11/08/16 04:16 98.1 64 20 109/54 98 Room Air 11/08/16 04:00 66 11/08/16 00:32 98.0 67 20 120/57 98 Room Air 11/08/16 00:00 67 11/07/16 20:00 97.9 70 18 131/67 97 Nasal Cannula 2.0 11/07/16 20:00 73 11/07/16 18:09 65 117/64 11/07/16 18:08 117/64 11/07/16 16:00 97.4 58 18 117/64 Nasal Cannula 2.0 97 11/07/16 16:00 65 Intake and Output 11/07/16 11/08/16 19:00 07:00 Intake Total 55 ml Output Total 1 ml Balance 54 ml IV Total 55 ml Output Urine Total 1 ml # Voids 1 Laboratory Tests 11/08/16 07:39: White Blood Count 6.6, Red Blood Count 4.69, Hemoglobin 14.0, Hematocrit 40.3, Mean Corpuscular Volume 86, Mean Corpuscular Hemoglobin 29.8, Mean Corpuscular Hemoglobin Concent 34.7, Red Cell Distribution Width 11.6, Platelet Count 87L, Mean Platelet Volume 9.5, Neutrophils (%) (Auto) , Lymphocytes (%) (Auto) , Monocytes (%) (Auto) , Eosinophils (%) (Auto) , Basophils (%) (Auto) , Differential Total Cells Counted 100, Neutrophils % (Manual) 45, Lymphocytes % ( Manual) 35, Monocytes % (Manual) 13H, Eosinophils % (Manual) 7H, Basophils % ( Manual) 0, Band Neutrophils 0, Platelet Estimate DecreasedL, Platelet Morphology , Giant Platelets Rare, Red Blood Cell Morphology Normal Height (Feet): 5 Height (Inches): 2.00 Weight (Pounds): 167 Neck: supple Cardiovascular: normal rate Respiratory/Chest: lungs clear Abdomen: soft Mio Lockhart MD November 08, 2016 13:34
[2016-11-08 16:00] VITALS: BP 107/64
[2016-11-08 20:00] VITALS: BP 121/75
[2016-11-08] MEDS: Ertapenem 1 GM in NS 55 ML IVPB SCH (21:09)
--- NOTE | 2016-11-08 22:40 | General Progress Note ---
Assessment/Plan Assessment/Plan IMPRESSION: 1. Chronic idiopathic thrombocytopenic purpura. Hepatitis panel pending. US negative from before 2. Status post treatment with steroid by mouth. 3. Status post treatment with rituximab. 4. History of cardiac arrhythmia. 5. Status post [employer] pacemaker placement in 2014. 6. Diabetes mellitus. 7. Hypertension. 8. Resistant urinary tract infection. 9. Failure to thrive. RECOMMENDATIONS: 1. Watch count. 2. Watch coagulopathy. 3. Platelet transfusion as needed basis. 4. Antibiotic intravenous. 5. Cardiology followup. 6. ID followup. 7. Skin care. 8. Nutrition. 9. Continue current treatments Subjective Constitutional: Reports: no symptoms HEENT: Reports: no symptoms Cardiovascular: Reports: no symptoms Respiratory: Reports: no symptoms Gastrointestinal/Abdominal: Reports: no symptoms Genitourinary: Reports: no symptoms Neurologic/Psychiatric: Reports: no symptoms Endocrine: Reports: no symptoms Hematologic/Lymphatic: Reports: anemia Allergies: Coded Allergies: No Known Allergies (Unverified , 10/22/15) Subjective stable, no events, no chills, no fevers Objective Last 24 Hour Vital Signs Date Time Temp Pulse Resp B/P Pulse Ox O2 Delivery O2 Flow Rate FiO2 11/08/16 20:00 97.8 75 19 121/75 96 Room Air 11/08/16 18:37 60 107/64 11/08/16 18:00 107/64 11/08/16 16:00 96.0 60 18 107/64 97 Room Air 11/08/16 16:00 72 11/08/16 12:00 97.4 65 18 97/54 Nasal Cannula 11/08/16 12:00 67 11/08/16 08:55 109/60 11/08/16 08:54 72 109/60 11/08/16 08:00 97.0 72 19 109/60 98 Room Air 11/08/16 08:00 73 11/08/16 04:16 98.1 64 20 109/54 98 Room Air 11/08/16 04:00 66 11/08/16 00:32 98.0 67 20 120/57 98 Room Air 11/08/16 00:00 67 Intake and Output 11/07/16 11/08/16 19:00 07:00 Intake Total 55 ml Output Total 1 ml Balance 54 ml IV Total 55 ml Output Urine Total 1 ml # Voids 1 Laboratory Tests 11/08/16 07:39: White Blood Count 6.6, Red Blood Count 4.69, Hemoglobin 14.0, Hematocrit 40.3, Mean Corpuscular Volume 86, Mean Corpuscular Hemoglobin 29.8, Mean Corpuscular Hemoglobin Concent 34.7, Red Cell Distribution Width 11.6, Platelet Count 87L, Mean Platelet Volume 9.5, Neutrophils (%) (Auto) , Lymphocytes (%) (Auto) , Monocytes (%) (Auto) , Eosinophils (%) (Auto) , Basophils (%) (Auto) , Differential Total Cells Counted 100, Neutrophils % (Manual) 45, Lymphocytes % ( Manual) 35, Monocytes % (Manual) 13H, Eosinophils % (Manual) 7H, Basophils % ( Manual) 0, Band Neutrophils 0, Platelet Estimate DecreasedL, Platelet Morphology , Giant Platelets Rare, Red Blood Cell Morphology Normal 11/08/16 18:25: Heparin-PF4 Antibody Screen [Pending] Height (Feet): 5 Height (Inches): 2.00 Weight (Pounds): 167 General Appearance: alert EENT: normal ENT inspection Neck: normal alignment Cardiovascular: normal rate Respiratory/Chest: lungs clear Abdomen: non tender Extremities: non-tender Edema: 1+ Leg (L), 1+ Leg (R) Edema: mild edema Neurologic: alert Skin: warm/dry Glenroy Spann November 08, 2016 22:40
[2016-11-09] VITALS: BP 114/78
[2016-11-09 04:00] VITALS: BP 119/82
[2016-11-09 05:21] LABS: MEAN CORPUSCULAR HEMOGLOBIN 29.8 PG (27.0-31.0); MEAN CORPUSCULAR HGB CONC 34.9 G/DL (32.0-36.0); MEAN CORPUSCULAR VOLUME 85 FL (80-99); MEAN PLATELET VOLUME 9.1 FL (6.5-10.1); PLATELET COUNT 83 K/UL (150-450); RED BLOOD COUNT 4.59 M/UL (4.20-5.40); RED CELL DISTRIBUTION WIDTH 11.7 % (11.6-14.8); WHITE BLOOD COUNT 7.1 K/UL (4.8-10.8)
[2016-11-09 08:01] VITALS: BP 115/68
[2016-11-09] MEDS: Spironolactone 25mg tab ORAL SCH (09:10)
[2016-11-09] MEDS: Carvedilol 6.25mg Tab ORAL SCH ×2 (09:10→17:12)
[2016-11-09] MEDS: Multivitamin w/Minerals tab ORAL SCH (09:10)
[2016-11-09] MEDS: metFORMIN 500mg tab ORAL SCH ×2 (09:10→17:12)
[2016-11-09] MEDS: Furosemide 40mg tab ORAL SCH (09:10)
[2016-11-09] MEDS: Losartan 50mg tab ORAL SCH ×2 (09:11→17:12)
[2016-11-09 12:02] VITALS: BP 95/49
--- NOTE | 2016-11-09 15:36 | Infectious Diseases Prog Note ---
Assessment/Plan Problems: (1) Acute pyelonephritis Assessment & Plan: due to MDR E coli resistant to ertapenem, will stop ertapenem and start amikacin for two weeks (2) Dehydration Assessment & Plan: continue IVF for hydration Subjective Constitutional: Reports: fatigue HEENT: Reports: no symptoms Respiratory: Reports: no symptoms Cardiovascular: Reports: no symptoms Gastrointestinal/Abdominal: Reports: no symptoms Genitourinary: Reports: dysuria, frequency Neurologic: Reports: no symptoms Psychiatric: Reports: no symptoms Skin: Reports: no symptoms Endocrine: Reports: no symptoms Hematologic: Reports: no symptoms Allergies: Coded Allergies: No Known Allergies (Unverified , 10/22/15) Objective Vital Signs Last 24 Hour Vital Signs Date Time Temp Pulse Resp B/P Pulse Ox O2 Delivery O2 Flow Rate FiO2 11/09/16 12:02 97.8 64 18 95/49 95 Room Air 11/09/16 12:00 65 11/09/16 09:11 115/68 11/09/16 09:10 60 115/68 11/09/16 08:01 97.7 60 18 115/68 97 Nasal Cannula 2.0 11/09/16 08:00 75 11/09/16 04:00 98.0 80 20 119/82 95 Room Air 11/09/16 04:00 62 11/09/16 00:00 98.1 84 20 114/78 94 Room Air 11/09/16 00:00 66 11/08/16 20:00 74 11/08/16 20:00 97.8 75 19 121/75 96 Room Air 11/08/16 18:37 60 107/64 11/08/16 18:00 107/64 11/08/16 16:00 96.0 60 18 107/64 97 Room Air 11/08/16 16:00 72 Height (Feet): 5 Height (Inches): 2.00 Weight (Pounds): 167 General Appearance: WD/WN, no acute distress HEENT: normocephalic, atraumatic, anicteric, mucous membranes moist Respiratory/Chest: chest wall non-tender, lungs clear, normal breath sounds, no respiratory distress, no accessory muscle use Cardiovascular: normal peripheral pulses, normal rate, regular rhythm, no gallop/murmur, no JVD Abdomen: normal bowel sounds, soft, non tender, no organomegaly, non distended , no mass Extremities: no cyanosis, no clubbing Skin: no rash, no lesions Laboratory Tests Test 11/08/16 18:25 11/09/16 04:30 Heparin-PF4 Antibody Screen Pending White Blood Count 7.1 K/UL (4.8-10.8) Red Blood Count 4.59 M/UL (4.20-5.40) Hemoglobin 13.7 G/DL (12.0-16.0) Hematocrit 39.2 % (37.0-47.0) Mean Corpuscular Volume 85 FL (80-99) Mean Corpuscular Hemoglobin 29.8 PG (27.0-31.0) Mean Corpuscular Hemoglobin Concent 34.9 G/DL (32.0-36.0) Red Cell Distribution Width 11.7 % (11.6-14.8) Platelet Count 83 K/UL (150-450) L Mean Platelet Volume 9.1 FL (6.5-10.1) Neutrophils (%) (Auto) % (45.0-75.0) Lymphocytes (%) (Auto) % (20.0-45.0) Monocytes (%) (Auto) % (1.0-10.0) Eosinophils (%) (Auto) % (0.0-3.0) Basophils (%) (Auto) % (0.0-2.0) Current Medications Medications (Trade) Dose Ordered Sig/Leonarda Route PRN Reason Start Time Stop Time Status Last Admin Dose Admin Acetaminophen (Tylenol) 650 mg Q4H PRN ORAL Mild Pain/Temp > 100.5 11/06/16 00:45 12/06/16 00:44 11/06/16 05:56 Acetaminophen/ Hydrocodone Bitart ([place] 5/325) 1 tab Q4H PRN ORAL Moderate Pain (Pain Scale 4-6) 11/06/16 00:45 11/13/16 00:44 Amikacin Protocol (Amikacin pharmacy to dose) 1 ea DAILY PRN MISC Per rx protocol 11/09/16 15:45 11/23/16 15:44 UNV Carvedilol (Coreg) 12.5 mg BID ORAL 11/06/16 18:00 12/06/16 17:59 11/09/16 09:10 Fenofibrate (Tricor) 54 mg DAILY ORAL 11/06/16 09:00 12/06/16 08:59 11/09/16 09:10 Furosemide (Lasix) 40 mg DAILY ORAL 11/07/16 09:00 12/07/16 08:59 11/09/16 09:10 Losartan Potassium (Cozaar) 50 mg BID ORAL 11/06/16 09:00 12/06/16 08:59 11/09/16 09:11 Metformin HCl (Glucophage) 500 mg TWICE A DAY ORAL 11/06/16 09:00 12/06/16 08:59 11/09/16 09:10 Multivitamins Therapeutic (Therapeutic Multivitamin) 1 ea DAILY ORAL 11/06/16 09:00 12/06/16 08:59 11/09/16 09:10 Spironolactone (Aldactone) 25 mg DAILY ORAL 11/07/16 09:00 12/07/16 08:59 11/09/16 09:10 Yady Godoy M.D. November 09, 2016 15:36
[2016-11-09] MEDS ORDERED: Amikacin Rx to dose MISC PRN (15:45)
[2016-11-09 15:59] VITALS: BP 118/63
[2016-11-09] MEDS ORDERED: Amikacin 900 MG in NS 110 ML IV SCH (17:00)
--- NOTE | 2016-11-09 17:09 | Cardiac Electrophysiology PN ---
Assessment/Plan Assessment/Plan 1. Recurrent wide complex tachycardia and ejection fraction of 35% to 40%. Interrogated the pacemaker that showed some of these episodes were PMT. PVARP was increased. 2. CHF Better on Coreg 12.5 mg b.i.d.,Cozaar 50 mg b.i.d., Lasix and Aldactone. Likely will transfer for cardiac cath after UTI is resolved. 3. Hypertension. Continue Coreg, Cozaar, Aldactone, and Lasix. 4. Status post [employer] pacemaker. Pacemaker was interrogated. 5. LBBB 6. Resistant urinary tract infection. On ertapenem per Dr. Godoy. VALENTINA RN Subjective Subjective Feeling better. No chest pain or SOB.In SR with BBB and occasional PVCs. Objective Last 24 Hour Vital Signs Date Time Temp Pulse Resp B/P Pulse Ox O2 Delivery O2 Flow Rate FiO2 11/09/16 15:59 97.5 61 18 118/63 100 Room Air 11/09/16 12:02 97.8 64 18 95/49 95 Room Air 11/09/16 12:00 65 11/09/16 09:11 115/68 11/09/16 09:10 60 115/68 11/09/16 08:01 97.7 60 18 115/68 97 Nasal Cannula 2.0 11/09/16 08:00 75 11/09/16 04:00 98.0 80 20 119/82 95 Room Air 11/09/16 04:00 62 11/09/16 00:00 98.1 84 20 114/78 94 Room Air 11/09/16 00:00 66 11/08/16 20:00 74 11/08/16 20:00 97.8 75 19 121/75 96 Room Air 11/08/16 18:37 60 107/64 11/08/16 18:00 107/64 Intake and Output 11/08/16 11/09/16 19:00 07:00 Intake Total 55 ml Balance 55 ml IV Total 55 ml # Voids 2 Laboratory Tests Test 11/08/16 18:25 11/09/16 04:30 Heparin-PF4 Antibody Screen Pending White Blood Count 7.1 K/UL (4.8-10.8) Red Blood Count 4.59 M/UL (4.20-5.40) Hemoglobin 13.7 G/DL (12.0-16.0) Hematocrit 39.2 % (37.0-47.0) Mean Corpuscular Volume 85 FL (80-99) Mean Corpuscular Hemoglobin 29.8 PG (27.0-31.0) Mean Corpuscular Hemoglobin Concent 34.9 G/DL (32.0-36.0) Red Cell Distribution Width 11.7 % (11.6-14.8) Platelet Count 83 K/UL (150-450) L Mean Platelet Volume 9.1 FL (6.5-10.1) Neutrophils (%) (Auto) % (45.0-75.0) Lymphocytes (%) (Auto) % (20.0-45.0) Monocytes (%) (Auto) % (1.0-10.0) Eosinophils (%) (Auto) % (0.0-3.0) Basophils (%) (Auto) % (0.0-2.0) Objective HEAD AND NECK: Shows no JVD. LUNGS: Clear. CARDIOVASCULAR: Regular S1 and S2 with no gallop. Pacemaker in left subclavian. ABDOMEN: Soft. EXTREMITIES: No pitting edema. AURELIA BOYLE November 09, 2016 17:09
--- NOTE | 2016-11-09 17:16 | General Progress Note ---
Assessment/Plan Assessment/Plan IMPRESSION: 1. Chronic idiopathic thrombocytopenic purpura. Hepatitis panel pending. US negative from before was wnl. Status post treatment with steroid by mouth. Status post treatment with rituximab. 2. History of cardiac arrhythmia. 3. Status post [employer] pacemaker placement in 2014. 4. Diabetes mellitus. 5. Hypertension. 6. Resistant urinary tract infection. 7. Failure to thrive. RECOMMENDATIONS: 1. Watch count. 2. Watch coagulopathy. 3. Platelet transfusion, plt goal >20k 4. Antibiotic intravenous. 5. Cardiology followup. 6. ID followup. 7. Skin care. 8. Nutrition. 9. Continue current treatment Subjective Constitutional: Reports: no symptoms HEENT: Reports: no symptoms Cardiovascular: Reports: no symptoms Respiratory: Reports: no symptoms Gastrointestinal/Abdominal: Reports: poor appetite Genitourinary: Reports: no symptoms Neurologic/Psychiatric: Reports: no symptoms Endocrine: Reports: no symptoms Hematologic/Lymphatic: Reports: anemia Allergies: Coded Allergies: No Known Allergies (Unverified , 10/22/15) Subjective stable, no events, no chills, on abx as per ID team Objective Last 24 Hour Vital Signs Date Time Temp Pulse Resp B/P Pulse Ox O2 Delivery O2 Flow Rate FiO2 11/09/16 15:59 97.5 61 18 118/63 100 Room Air 11/09/16 12:02 97.8 64 18 95/49 95 Room Air 11/09/16 12:00 65 11/09/16 09:11 115/68 11/09/16 09:10 60 115/68 11/09/16 08:01 97.7 60 18 115/68 97 Nasal Cannula 2.0 11/09/16 08:00 75 11/09/16 04:00 98.0 80 20 119/82 95 Room Air 11/09/16 04:00 62 11/09/16 00:00 98.1 84 20 114/78 94 Room Air 11/09/16 00:00 66 11/08/16 20:00 74 11/08/16 20:00 97.8 75 19 121/75 96 Room Air 11/08/16 18:37 60 107/64 11/08/16 18:00 107/64 Intake and Output 11/08/16 11/09/16 19:00 07:00 Intake Total 55 ml Balance 55 ml IV Total 55 ml # Voids 2 Laboratory Tests 11/08/16 18:25: Heparin-PF4 Antibody Screen [Pending] 11/09/16 04:30: White Blood Count 7.1, Red Blood Count 4.59, Hemoglobin 13.7, Hematocrit 39.2, Mean Corpuscular Volume 85, Mean Corpuscular Hemoglobin 29.8, Mean Corpuscular Hemoglobin Concent 34.9, Red Cell Distribution Width 11.7, Platelet Count 83L, Mean Platelet Volume 9.1, Neutrophils (%) (Auto) , Lymphocytes (%) (Auto) , Monocytes (%) (Auto) , Eosinophils (%) (Auto) , Basophils (%) (Auto) Height (Feet): 5 Height (Inches): 2.00 Weight (Pounds): 167 General Appearance: no apparent distress EENT: TMs normal Neck: supple Cardiovascular: normal rate Respiratory/Chest: normal breath sounds Abdomen: non tender Extremities: non-tender Edema: 1+ Leg (L), 1+ Leg (R) Edema: mild edema Neurologic: alert Skin: warm/dry Glenroy Spann November 09, 2016 17:16
[2016-11-09 20:00] VITALS: BP 105/64
[2016-11-10] VITALS: BP 120/74
[2016-11-10 04:00] VITALS: BP 120/62
[2016-11-10 04:54] LABS: MEAN CORPUSCULAR HEMOGLOBIN 29.5 PG (27.0-31.0); MEAN CORPUSCULAR HGB CONC 34.3 G/DL (32.0-36.0); MEAN CORPUSCULAR VOLUME 86 FL (80-99); MEAN PLATELET VOLUME 9.9 FL (6.5-10.1); PLATELET COUNT 91 K/UL (150-450); RED BLOOD COUNT 4.56 M/UL (4.20-5.40); RED CELL DISTRIBUTION WIDTH 11.9 % (11.6-14.8); WHITE BLOOD COUNT 6.3 K/UL (4.8-10.8)
[2016-11-10 08:18] VITALS: BP 91/53
[2016-11-10] MEDS: metFORMIN 500mg tab ORAL SCH (09:10)
[2016-11-10] MEDS: Multivitamin w/Minerals tab ORAL SCH (09:10)
[2016-11-10] MEDS: Furosemide 40mg tab ORAL SCH (09:10)
[2016-11-10] MEDS: Losartan 50mg tab ORAL SCH (09:12)
[2016-11-10] MEDS: Spironolactone 25mg tab ORAL SCH (09:13)
[2016-11-10] MEDS: Carvedilol 6.25mg Tab ORAL SCH (09:13)
[2016-11-10 09:15] VITALS: BP 116/62
[2016-11-10] MEDS ORDERED: AMIKIN500 MG/2 M IM (09:45)
[2016-11-10 11:57] VITALS: BP 103/55
--- NOTE | 2016-11-10 12:35 | Diagnostic Imaging Report ---
APPROVED REPORT CPT Code: 86040 Present Symptoms Lower Extremity Pain: Bilateral BILATERAL: Imaging reveals a patent deep venous system bilaterally. There is no evidence of thrombus within the femoral, popliteal or tibial segments. The greater saphenous veins are also within normal limits. Doppler indicates normal spontaneous flow within these segments.
--- NOTE | 2016-11-10 12:47 | General Progress Note ---
Assessment/Plan Problem List: (1) Tachyarrhythmia ICD Codes: R00.0 - Tachycardia, unspecified SNOMED: 2682099 (2) Urinary tract infection ICD Codes: N39.0 - Urinary tract infection, site not specified SNOMED: 41476219 (3) Dehydration ICD Codes: E86.0 - Dehydration SNOMED: 78815583 (4) Abdominal pain ICD Codes: R10.9 - Unspecified abdominal pain SNOMED: 29137477 Status: progressing Assessment/Plan going to snf to finish off iv abx for esbl uti Subjective ROS Limited/Unobtainable: Yes Constitutional: Reports: no symptoms Allergies: Coded Allergies: No Known Allergies (Unverified , 10/22/15) Objective Last 24 Hour Vital Signs Date Time Temp Pulse Resp B/P Pulse Ox O2 Delivery O2 Flow Rate FiO2 11/10/16 11:57 97.2 65 18 103/55 95 Nasal Cannula 2.0 11/10/16 09:15 116/62 11/10/16 09:13 70 116/62 11/10/16 09:12 116/62 11/10/16 08:18 97.0 60 20 91/53 99 Nasal Cannula 2.0 11/10/16 08:00 71 11/10/16 04:00 61 11/10/16 04:00 97.4 60 20 120/62 99 Nasal Cannula 2.0 11/10/16 01:19 64 11/10/16 00:00 97.2 62 21 120/74 98 Nasal Cannula 2.0 11/09/16 20:00 97.0 66 20 105/64 98 Room Air 11/09/16 20:00 66 11/09/16 17:12 61 118/63 11/09/16 17:12 118/63 11/09/16 16:00 65 11/09/16 15:59 97.5 61 18 118/63 100 Room Air Intake and Output 11/09/16 11/10/16 19:00 07:00 Intake Total 833.6 ml 240 ml Balance 833.6 ml 240 ml Intake Oral 720 ml 240 ml IV Total 113.6 ml # Voids 4 1 # Bowel Movements 2 Laboratory Tests 11/10/16 04:45: White Blood Count 6.3, Red Blood Count 4.56, Hemoglobin 13.4, Hematocrit 39.1, Mean Corpuscular Volume 86, Mean Corpuscular Hemoglobin 29.5, Mean Corpuscular Hemoglobin Concent 34.3, Red Cell Distribution Width 11.9, Platelet Count 91L, Mean Platelet Volume 9.9, Neutrophils (%) (Auto) , Lymphocytes (%) (Auto) , Monocytes (%) (Auto) , Eosinophils (%) (Auto) , Basophils (%) (Auto) , Random Amikacin Level 10.2 Height (Feet): 5 Height (Inches): 2.00 Weight (Pounds): 167 EENT: BENJAMIN/Mio Duncan MD November 10, 2016 12:47
--- NOTE | 2016-11-10 23:28 | General Progress Note ---
Assessment/Plan Assessment/Plan IMPRESSION: 1. Chronic idiopathic thrombocytopenic purpura. Hepatitis panel pending. US negative from before was wnl. Status post treatment with steroid by mouth. Status post treatment with rituximab. 2. History of cardiac arrhythmia. 3. Status post [employer] pacemaker placement in 2014. 4. Diabetes mellitus. 5. Hypertension. 6. Resistant urinary tract infection. 7. Failure to thrive. RECOMMENDATIONS: 1. Watch count. 2. Watch coagulopathy. 3. Platelet transfusion, plt goal >20k 4. Antibiotic intravenous. 5. Cardiology followup. 6. ID followup. 7. Skin care. 8. Nutrition. 9. Continue current treatment Subjective Constitutional: Reports: no symptoms HEENT: Reports: no symptoms Cardiovascular: Reports: no symptoms Respiratory: Reports: no symptoms Gastrointestinal/Abdominal: Reports: poor appetite Genitourinary: Reports: no symptoms Neurologic/Psychiatric: Reports: no symptoms Endocrine: Reports: no symptoms Hematologic/Lymphatic: Reports: anemia Allergies: Coded Allergies: No Known Allergies (Unverified , 10/22/15) Subjective stable, no events, no chills, on abx as per ID Objective Last 24 Hour Vital Signs Date Time Temp Pulse Resp B/P Pulse Ox O2 Delivery O2 Flow Rate FiO2 11/10/16 11:57 97.2 65 18 103/55 95 Nasal Cannula 2.0 11/10/16 09:15 116/62 11/10/16 09:13 70 116/62 11/10/16 09:12 116/62 11/10/16 08:18 97.0 60 20 91/53 99 Nasal Cannula 2.0 11/10/16 08:00 71 11/10/16 04:00 61 11/10/16 04:00 97.4 60 20 120/62 99 Nasal Cannula 2.0 11/10/16 01:19 64 11/10/16 00:00 97.2 62 21 120/74 98 Nasal Cannula 2.0 Intake and Output 11/09/16 11/10/16 18:59 06:59 Intake Total 720 ml 353.6 ml Balance 720 ml 353.6 ml Intake Oral 720 ml 240 ml IV Total 113.6 ml # Voids 4 1 # Bowel Movements 2 Laboratory Tests 11/10/16 04:45: White Blood Count 6.3, Red Blood Count 4.56, Hemoglobin 13.4, Hematocrit 39.1, Mean Corpuscular Volume 86, Mean Corpuscular Hemoglobin 29.5, Mean Corpuscular Hemoglobin Concent 34.3, Red Cell Distribution Width 11.9, Platelet Count 91L, Mean Platelet Volume 9.9, Neutrophils (%) (Auto) , Lymphocytes (%) (Auto) , Monocytes (%) (Auto) , Eosinophils (%) (Auto) , Basophils (%) (Auto) , Random Amikacin Level 10.2 Height (Feet): 5 Height (Inches): 2.00 Weight (Pounds): 167 General Appearance: no apparent distress EENT: normal ENT inspection Neck: supple Cardiovascular: regular rhythm Respiratory/Chest: lungs clear Abdomen: non tender Genitourinary/Rectal: heme negative stool Extremities: normal inspection Edema: 1+ Leg (L), 1+ Leg (R) Edema: mild edema Neurologic: alert Glenroy Spann November 10, 2016 23:28
[2016-11-11] MEDS ORDERED: Amikacin 900 MG in NS 110 ML IV SCH (17:00)
[2016-11-12 11:51] LABS: SEROTONIN,SERUM 14
--- NOTE | 2016-11-12 13:53 | Discharge Summary ---
Discharge Summary Hospital Course Date of Admission November 05, 2016 at 20:35 Date of Discharge November 10, 2016 at 13:30 Admitting Diagnosis resistant e-coli UTI HPI Elizabeth Paulino is a 71 year old female who was admitted on November 05, 2016 at 20: 35 for Resistent E.coli/ Urinary Tract Infection Hospital Course [id number] Discharge Discharge Disposition Patient was discharged to SNF/Subacute Facility(03) Discharge Diagnoses: Tanisha Ventura NP Nov 12, 2016 13:53
--- NOTE | 2016-11-13 00:30 | Discharge Summary 2 SIG ---
DATE OF ADMISSION: 11/05/2016 DATE OF DISCHARGE: 11/10/2016 CONSULTANTS: 1. Dillon Spann M.D. 2. Bo Desai M.D. 3. Yady Godoy M.D. 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 The patient was sent because of resistant E. coli in the urine and has been on antibiotics and not helping her symptoms. She still presented with dysuria and suprapubic pain, and organism is resistant to all antibiotics except for imipenem and gentamicin. She has a pacemaker and underwent event monitor and was started on antiarrhythmic medications. This was eventually stopped because of hypotension and lethargy. She feels palpitations and dizziness. On evaluation at ED, labs showed pyuria. EKG was in normal sinus rhythm and bundle-branch block. She was given Invanz and was admitted for further treatment. Dr. Godoy was consulted. The patient's E. coli is sensitive to ertapenem and was started on IV antibiotics. She was also followed by Dr. Desai for evaluation of ventricular tachycardia. She had a history of hypertension and sick sinus syndrome and was found to have episodes of wide complex tachycardia suggestive of ventricular tachycardia. On telemetry, she was in sinus rhythm. Coreg was increased to 12.5 mg b.i.d. and Cozaar 50 mg b.i.d. Lasix and Aldactone were added to her regimen. Amlodipine was discontinued. Pacemaker interrogation done showed some of episodes were PMT. PVARP was increased. Dr. Spann was consulted for evaluation of thrombocytopenia. The patient has chronic idiopathic thrombocytopenic purpura status post treatment with steroids and rituximab. Cultures showed MDR E. coli resistant to ertapenem. Ertapenem was discontinued and was started on amikacin. The patient was eventually discharged to SNF to continue amikacin for seven more days. FINAL DIAGNOSES: 1. Acute pyelonephritis due to multidrug resistant Escherichia coli. 2. Dehydration. 3. Tachyarrhythmia. 4. Acute on chronic systolic congestive heart failure. 5. Status post [employer] pacemaker. Interrogation showed normal function. 6. Left left bundle-branch block. 7. Hypertension. DISPOSITION: The patient was discharged back to [facility] to complete antibiotic treatment for urinary tract infection and advised to undergo outpatient cardiac catheterization after UTI is resolved. Mio Lockhart M.D. I have been assigned to dictate discharge summary on this account and I was not involved in the patient's management. Tanisha Ventura N.P. DR: [place] JOB#: [id number] CC:
== END 2016-11-10 13:30 | DRG 690 ==
LOC: ENRESERVDT → ENRESERVTM → EMR 19:59 → 4E 20:35 → EDBEDREQ 21:25 → 2E 23:00
DX: N39.0 Urinary tract infection, site not specified (principal); I47.2 Ventricular tachycardia; D69.3 Immune thrombocytopenic purpura; I42.9 Cardiomyopathy, unspecified; I50.9 Heart failure, unspecified; E86.0 Dehydration; R62.7 Adult failure to thrive; B96.20 Unspecified Escherichia coli [E. coli] as the cause of diseases classified elsewhere; Z95.0 Presence of cardiac pacemaker; I10 Essential (primary) hypertension; Z16.24 Resistance to multiple antibiotics; E11.9 Type 2 diabetes mellitus without complications; I25.10 Atherosclerotic heart disease of native coronary artery without angina pectoris; I44.7 Left bundle-branch block, unspecified
CPT/HCPCS: 36415; 71010; 80053; 80150; 81003; 82550; 82962; 83605; 83880; 84260; 84484; 85007; 85025; 85610; 85730; 86703; 86705; 86709; 86803; 87040; 87086; 87181; 87340; 93005; 93306; 93970